=== PATIENT | male | born 1985 | race Caucasian/White ===

== ENCOUNTER 2018-08-07 09:11 | Emergency (ER) | payer MEDICARE, MEDICAID ==
[~2018-08-07] VITALS: Ht 180.3 cm; Wt 81.0 kg
[2018-08-07 09:18] VITALS: BP 128/92
[2018-08-07] MEDS ORDERED: NEOM10DR45 OT (09:47)
== END 2018-08-07 09:54 | disposition home or self-care (01) ==
LOC: ER 09:12
DX: H60.8X2 Other otitis externa, left ear (principal); F12.90 Cannabis use, unspecified, uncomplicated
CPT/HCPCS: 99283